=== PATIENT | female | born 1945 | race Caucasian/White ===

== ENCOUNTER → 2017-07-23 | Outpatient (CLI) | payer OTHER ==
[~2017-07-23] MED LIST: COZAAR 50 MG TA50 M2 PO; D3 DOTS2000 UNIT PO; ETODOLAC 400 M400 M1 PO; FISH OIL 1,001000 M2 PO; FLEXERIL PO; GLUCOSAMINE HC500 MG PO; HYDROCODON-ACE1 EAC7 PO; LEXAPRO 10 MG T10 M2 PO; LIDOPATCH1 EACH TOP; PERCOCET PO; TRAMADOL 50 MG50 MG PO; TURMERIC500 M2 PO; UNICOMPLEX M TA1 TA1 PO; XARELTO10 MG PO
== END ==
LOC: EDUNIT# → M.MRI 13:56
DX: S83.231A Complex tear of medial meniscus, current injury, right knee, initial encounter (principal); M17.11 Unilateral primary osteoarthritis, right knee; M25.461 Effusion, right knee; M71.21 Synovial cyst of popliteal space [Baker], right knee; X58.XXXA Exposure to other specified factors, initial encounter; Y93.89 Activity, other specified; Y92.89 Other specified places as the place of occurrence of the external cause; Y99.8 Other external cause status; Z96.651 Presence of right artificial knee joint

== ENCOUNTER 2017-08-20 07:01 | Inpatient (IN) | payer OTHER ==
[2017-08-08 09:51] LABS: URINE BLOOD NEGATIVE (Negative); URINE CLARITY CLEAR; URINE COLOR YELLOW; URINE GLUCOSE-RANDOM NEGATIVE (Negative); URINE KETONES NEGATIVE (Negative); URINE LEUKOCYTES-REFLEX NEGATIVE (Negative); URINE NITRITE-REFLEX NEGATIVE (Negative); URINE PROTEIN NEGATIVE (Negative); URINE SPECIFIC GRAVITY 1.025 (1.005-1.030); URINE UROBILINOGEN 0.2 E.U./dl (0.2-1.0)
[2017-08-08 09:54] LABS: ICTOTEST (BILI CONFIRMATORY) Positive (Negative); URINE BILIRUBIN 3+ (Negative)
[2017-08-08 10:01] LABS: HEMATOCRIT 43.9 % (37.0-47.0); HEMOGLOBIN 14.6 gm/dL (12.0-15.0); MCH 28.8 pg (26.0-34.0); MCHC 33.2 g/dL (28.0-37.0); MCV 86.6 fL (80.0-100.0); MPV 7.1 fl. (7.2-11.1); RBC 5.07 mil/uL (4.20-5.00); RDW-CV 14.2 % (10.5-14.5); WBC 5.5 thou/uL (4.0-11.0)
[2017-08-08 10:13] LABS: PROTIME 9.4 Seconds (9.20-11.50)
[2017-08-08 10:19] LABS: ALBUMIN 3.7 g/dL (3.4-5.0); CALCIUM 9.5 mg/dL (8.5-10.1); CREATININE 0.7 mg/dL (0.6-1.3); POTASSIUM 4.1 mmol/L (3.5-5.1); TOTAL BILIRUBIN 0.6 mg/dL (<0.1-1.0); TOTAL PROTEIN 7.3 g/dL (6.4-8.2)
--- NOTE | 2017-08-08 17:51 | EKG ---
[place] [address] ELECTROCARDIOGRAM REPORT Name: MARKUS MCCANN Room: PRE IN [facility]#: [id number] Admission: Attend Phys: Obdulia Uribe Discharge: Date of : 49 Report #: [id number] THIS REPORT FOR: //name// [facility] Test Date: 2017-08-08 Test Time: 09:24:02 Pat Name: MARKUS MCCANN Department: Room: Gender: F Vessel Crew Member: : 1945 Requested By: Kaiser Alvarez Order Number: [id number] Reading MD: Brien Stone Measurements Intervals [place] Rate: 78 P: 59 LA: 169 QRS: 2 QRSD: 87 T: 46 QT: 376 QTc: 429 Interpretive Statements Sinus rhythm No previous ECG available for comparison Electronically Signed On 08-08-2017 17:50:46 CDT by Brien Stone [email or web address] <ELECTRONICALLY SIGNED> By: Brien Stone MD, [facility] 08/08/17 1750 0924 0924 Brien Stone MD, FACC /EPI
[~2017-08-20] VITALS: Ht 172.7 cm; Wt 108.4 kg
[~2017-08-20 07:01] MED LIST changes: -FLEXERIL PO; -HYDROCODON-ACE1 EAC7 PO; -LIDOPATCH1 EACH TOP; -PERCOCET PO; -TRAMADOL 50 MG50 MG PO; -XARELTO10 MG PO
--- NOTE | 2017-08-20 09:15 | NUR ---
RECIEVED O.T. ORDERS. WILL DEFER TO P.T. AND NURSING AT THIS TIME. PLEASE ORDER FURTHER O.T. SERVICES IF NEEDED.
[2017-08-20 09:24] VITALS: BP 153/77
[2017-08-20 12:23] VITALS: BP 121/64
--- NOTE | 2017-08-20 12:28 | NUR ---
PATIENT TRANSFERRED FROM PACU TO ROOM 105. ALERT AND ORIENTED. DENIES PAIN. DENIES NAUSEA. IVF INFUSING ORDERED. DRESSING TO RIGHT KNEE DRY AND INTACT. LEFT DAVID AND SCD'S IN PLACE. POLAR CARE IN PLACE. TOLERATNG DIET. BED ALARM SET. FAMILY AT BEDSIDE. WILL CONTINUE TO MONITOR.
[2017-08-20 16:00] VITALS: BP 156/71
--- NOTE | 2017-08-20 16:22 | NUR ---
PATIENT CARE AND REPORT ASSUMED FROM MATT HAINES. PATIENT CURRENTLY RESTING. [address], CAPNO IN PLACE. IV ABX INFUSING THIS EVENING WITH IVF. POLAR PACK IN PLACE TO RIGHT KNEE. WILL CONTINUE TO MONITOR.
[2017-08-20 20:30] VITALS: BP 126/60
[2017-08-20 23:51] VITALS: BP 147/66
[2017-08-21 04:00] VITALS: BP 135/57
--- NOTE | 2017-08-21 04:47 | NUR ---
PATIENT REMAINS ALERT AND ORIENTED X4 THROUGHOUT SHIFT. VITAL SIGNS STABLE ON 4 LITERS OF OXYGEN. CAPNO IN PLACE. PAIN MANAGED WITH PO PAIN MEDICATION PER ORDERS. DENIES NAUSEA AND OR VOMITING. HEMOVAC IN PLACE AND PATENT. IV PATENT IN THE LEFT WRIST INFUSING AT 75 ML/HR. HOURLY ROUNDING COMPLETE. THIGH HIGH DAVID HOSE TO LEFT LEG. BILATERAL FOOT SCD'S IN PLACE. TRANSFERRING WITH ASSIST OF 1-2 TO BEDSIDE COMMODE WITH WALKER AND GAITBELT. PATIENT DOES HAVE EPISODES OF URGE AND STRESS INCONTINENCE. ENCOURAGED TO LEAVE BRIEF OFF THROUGHOUT NIGHT, PATIENT DECLINED. POLAR PACK IN PLACE. CPM USED ORDERED. PATIENT REPOSITIONING HERSELF IN BED. FALL PRECAUTIONS IN PLACE. BED IN LOW POSITION. BED ALARM IN PLACE. CALL LIGHT WITHIN REACH. NURSING WILL CONTINUE TO MONITOR.
[2017-08-21 05:22] LABS: HEMATOCRIT 33.7 % (37.0-47.0); HEMOGLOBIN 11.3 gm/dL (12.0-15.0); MCHC 33.4 g/dL (28.0-37.0); MCV 86.6 fL (80.0-100.0); MPV 7.2 fl. (7.2-11.1); RBC 3.89 mil/uL (4.20-5.00); RDW-CV 13.4 % (10.5-14.5); WBC 7.4 thou/uL (4.0-11.0)
[2017-08-21 05:51] LABS: CALCIUM 8.2 mg/dL (8.5-10.1); CREATININE 0.7 mg/dL (0.6-1.3); POTASSIUM 4.4 mmol/L (3.5-5.1); TOTAL BILIRUBIN 0.3 mg/dL (<0.1-1.0); TOTAL PROTEIN 5.8 g/dL (6.4-8.2)
[2017-08-21 08:45] VITALS: BP 150/64
[2017-08-21] MEDS ORDERED: LIDOPATCH1 EACH TOP (09:35)
[2017-08-21] MEDS ORDERED: HYDROCODON-ACE1 EAC7 PO (09:35)
[2017-08-21] MEDS ORDERED: XARELTO10 MG PO (09:35)
--- NOTE | 2017-08-21 10:19 | NUR ---
INITIAL ASSESSMENT: Pt evaluated for d/c planning needs. Reviewed chart and spoke with nurse and pt. Pt is alert and oriented. Pt has walker and shower bench at home. Pt had home health years ago, and cannot recall name of company. Pt was given choices for home health. If pt goes home with home health, she is agreeable to use [facility]. Pt states she reluctant to return home and would prefer going to SNF on d/c. [facility] Referral sent to [facility]. Will remain available to assist as needed.
--- NOTE | 2017-08-21 10:50 | OP ---
[facility] [address] [place] [address] OPERATIVE REPORT Name: MARKUS MCCANN Room: [address] M.R.#: [id number] Admission: 08/20/17 Attend Phys: Obdulia Uribe Discharge: Date of : 49 Report #: [id number] THIS REPORT FOR: //name// CC: Leila Smalls DATE OF SERVICE: 08/20/2017 PREOPERATIVE DIAGNOSIS: Right knee osteoarthritis. POSTOPERATIVE DIAGNOSIS: Right knee osteoarthritis. PROCEDURE: Right total knee arthroplasty. SURGEON: Kaiser Alvarez DO FOOTWEAR PRODUCTION MACHINE OPERATOR: BETHANIE Iraheta. ANESTHESIA: General endotracheal. ESTIMATED BLOOD LOSS: 50 mL ANTIBIOTICS: Ancef preoperatively. DRAINS: Medium Hemovac. COMPLICATIONS: None. DISPOSITION: Stable to recovery room. IMPLANTS: Listed in the operative record and progress note. BRIEF HISTORY: The patient was seen in the preoperative area. Preoperative H and P was performed. The patient's site was marked, questions were answered. Risks and benefits were discussed with the patient in detail about surgery. The patient wished to proceed and assumed all risk. DESCRIPTION OF PROCEDURE: The patient was taken to the operative suite and placed supine on the operative table, given appropriate anesthesia. The patient had a well-padded tourniquet applied in the upper thigh, was inflated to 300 mmHg after gravity exsanguination. The operative knee was sterilely prepped and draped. Surgery began by midline incision, this was carried down to the subcutaneous tissues. A medial parapatellar arthrotomy was performed, carried down to bone. The patella was then everted and excess soft tissue removed around the femur. The femoral cutting block was then applied and checked with a [facility] [address] [place] [address] OPERATIVE REPORT Name: MARKUS MCCANN Room: [address] [facility].#: [id number] Admission: 08/20/17 Attend Phys: Obdulia Uribe Discharge: Date of : 49 Report #: [id number] drop kirk for rotational alignment, pinned in appropriate position and appropriate cuts were made. A 4-in-1 cutting block was then applied. Checked for rotational alignment, pinned in appropriate position and appropriate cuts were made. The tibia was then exposed, excess meniscus was removed. Retractor was placed along the collateral ligaments. The tibial cutting block was then applied, pinned in appropriate position and appropriate cut was made. Tibial bone was removed. Tibial base plate was then applied, checked for rotational alignment with the drop kirk, pinned in appropriate position. Femur was then applied and a box cut was reamed. This was then trialed with the appropriate spacer, which had excellent fit and fill and excellent stability of the knee throughout all range of motion. The patella was then reamed in appropriate fashion and sized to appropriate size. Three peg holes were drilled. The knee was then trialed, shown to have excellent flexion, extension, excellent tracking of patella from the groove. These trials were removed. The tibia was then punched in appropriate fashion. Bone ends were cleansed with Pulsavac irrigation and cement was mixed and applied to the final implants. These were then malleted in position and held with the knee in extension and compressed to allow the cement to cure. After cured, excess was removed using [place] and osteotome. Wound was then copiously irrigated and the final spacer was then malleted in position. Tourniquet was deflated. Hemostasis was maintained with electrocautery. Pain cocktail was injected, PRP gel sprayed throughout the internal aspects of the knee. Medium Hemovac drain was then applied. The capsule was closed with #2 FiberWire and #1 Vicryl in dxlipy-yg-wjdgw fashion. Skin was closed with 2-0 Vicryl and running 3-0 Monocryl. Dermabond dressing was applied. Mahamed wrap and PolarCare were applied. The patient transported to recovery in stable condition. Counts were correct throughout the procedure. <ELECTRONICALLY SIGNED> By: Kaiser Alvarez II, DO 08/21/17 1050 0658 [id number] Alvarez II, DO /nt
[2017-08-21] MEDS ORDERED: FLEXERIL PO (13:41)
[2017-08-21 13:46] VITALS: BP 150/64
[2017-08-21 15:44] VITALS: BP 126/64
--- NOTE | 2017-08-21 17:10 | NUR ---
PATIENT WORKED WITH PT X 2 TODAY. PRN PERCOCET AND SCHED TRAMADOL GIVEN FOR PAIN, PAIN MANAGEABLE WITH ORAL AGENTS. IV SL THIS SHIFT. HEMOVAC DC'D TO RIGHT KNEE THIS AM PER ORDERS. DRESSING TO RIGHT KNEE REMAINS D/I. PATIENT REFUSED CPM THIS AFTERNOON, INFORMED PATIENT THAT CPM WOULD NEED TO BE PLACED ON AFTER DINNER, PATIENT AGREEABLE. PATIENT REQUESTING TO GO TO SNF WHEN DISCHARGED, PROBABLE DISCHARGE TOMORROW.
[2017-08-21 20:00] VITALS: BP 123/59
--- NOTE | 2017-08-21 23:23 | NUR ---
PATIENT TRANSFERRED TO [facility] DURING [facility]DO WARNING PER HOSPITAL POLICY.
[2017-08-22 00:13] VITALS: BP 144/69
[2017-08-22 04:24] VITALS: BP 146/73
--- NOTE | 2017-08-22 04:50 | NUR ---
PATIENT REMAINS ALERT AND ORIENTED X4 THROUGHOUT SHIFT. VITAL SIGNS STABLE. OXYGEN WAS APPLIED AT 3 LITERS TO MAINTAIN OXYGEN SATURATION. IV PATENT AND SALINE LOCKED IN THE LEFT WRIST. TRANSFERRING WITH ASSIST OF 1 WITH WALKER AND GAITBELT TO THE BEDSIDE COMMODE. MEDICATIONS GIVEN PER ORDERS. POLAR PACK IN PLACE. DECLINES USING CPM WHEN OFFERED. CAN BE INCONTINENT AT TIMES AND HAS URGENCY. PAIN MANAGED WITH PO MEDICATION. DENIES NAUSEA. REPOSITIONING SELF IN BED. HOURLY ROUNDING COMPLETE. CALL LIGHT WITHIN REACH. NURSING WILL CONTINUE TO MONITOR.
[2017-08-22 04:53] LABS: HEMATOCRIT 33.5 % (37.0-47.0); HEMOGLOBIN 11.2 gm/dL (12.0-15.0)
[2017-08-22 07:45] VITALS: BP 137/65
--- NOTE | 2017-08-22 09:21 | NUR ---
FAXED PT ASSESSMENT AND OT ASSESSMENTS FROM 08/21 AFTERNOON TO [facility] TO FAX INTO INSURANCE FOR AUTHORIZATION FOR SNF.
--- NOTE | 2017-08-22 15:23 | NUR ---
RECEIVED CALL FROM [facility]. THEY HAVE INSURANCE AUTHORIZATION FROM PT.'S PROVIDER. CM SPOKE WITH PT.ON THE PHONE AND SHE IS AGREEABLE TO GO THERE. SHE WOULD LIKE TO GO HOME FROM THERE ON SATURDAY. I TOLD HER TO TALK WITH HER PHYSICAL THERAPIST AND NURSE AT THE [facility] AND THEY CAN LET HER KNOW IF THIS IS REALISTIC. TOLD HER CLINICAL LAB TECHNOLOGIST TIME AND THAT NSG.WOULD GET HER READY TO GO. NOTIFIED [employer] [facility]. SHE WILL COPY CHART AND FAX ORDERS TO RHIANNON/MARIE [phone]. NURSING TO CALL REPORT TO [phone]. WC ARRANGED BY MARIE FOR [phone].
[2017-08-22] MEDS ORDERED: PERCOCET PO (15:37)
[2017-08-22] MEDS ORDERED: TRAMADOL 50 MG50 MG PO ×2 (15:37→16:53)
[2017-08-22 15:57] VITALS: BP 137/65
[2017-08-22 16:44] VITALS: BP 150/64
--- NOTE | 2017-08-22 17:38 | NUR ---
PATIENT LEFT UNIT AT 1730. ALERT AND ORIENTED X4. UP WITH ASSIST X1 WITH WALKER AND GAIT BELT. IV DC'D. PAIN BEING MANAGED WITH PO PAIN MEDICATION. DENIES NAUSEA. ATTENDED PT TWICE THIS SHIFT. INCONTINENT AT TIMES. ALL PERSONAL ITEMS LEFT WITH PATIENT. DISCHARGE INSTRUCTIONS, PRESCRIPTIONS, AND NEW MEDICATION INFORMATION SENT WITH PATIENT TO SKILLED FACILITY. VSS ON ROOM AIR. HOURLY ROUNDS HAVE BEEN MAINTAINED THROUGHOUT SHIFT. LEFT WITH TRANSPORTER VIA CAR. REPORT GIVEN TO ELPIDIO AT [facility].
[2017-08-22 17:41] VITALS: BP 150/64
== END 2017-08-22 17:30 | DRG 470 ==
LOC: M.PRE → M.ORTHSURG 07:01 → M.PRE 07:01 → M.TBA 07:01 → M.PRE 09:05 → M.ORTHSURG 11:44 → M.PRE 13:56 → M.ORTHSURG 08-22 17:30
PROVIDERS: Internal Medicine; Orthopaedic Surgery; ADMIT Internal Medicine
PROC: 0SRC0J9 Replacement of Right Knee Joint with Synthetic Substitute, Cemented, Open Approach (ICD-10-PCS; principal; 2017-08-20)
DX: M17.11 Unilateral primary osteoarthritis, right knee (principal); M79.7 Fibromyalgia; I10 Essential (primary) hypertension; F32.9 Major depressive disorder, single episode, unspecified; Z79.899 Other long term (current) drug therapy; Z90.710 Acquired absence of both cervix and uterus

== ENCOUNTER → 2019-08-07 | Day surgery (SDC) | payer MEDICARE ==
[~2019-08-07] MED LIST changes: +FLEXERIL PO; +HYDROCODON-ACE1 EAC7 PO; +KEFLEX500 M2 PO; +LIDOPATCH1 EACH TOP; +NORVASC 2.5 MG2.5 M1 PO; +PERCOCET PO; +TRAMADOL 50 MG50 MG PO; +XARELTO10 MG PO
--- NOTE | ~2019-08-07 | OP ---
[facility] [address] [place] [address] OPERATIVE REPORT Name: MARKUS MCCANN Room: [facility]#: [id number] Admission: 08/07/19 Attend Phys: Adam Lagunas Discharge: Date of : 49 Report #: [id number] THIS REPORT FOR: //name// cc: JEANETTE WILLIS MD, HEATHER L. MD ~ THIS REPORT FOR: //name// CC: JEANETTE Lagunas DATE OF SERVICE: 08/07/2019 PREOPERATIVE DIAGNOSIS: Left heel foreign body. POSTOPERATIVE DIAGNOSIS: Left foot abscess. OPERATION: Incision and drainage of left foot abscess. SURGEON: Adam Lagunas MD ANESTHESIA: General. ESTIMATED BLOOD LOSS: Minimal. SPECIMEN: None. DESCRIPTION OF PROCEDURE: After informed consent was obtained, the patient was brought to the operating room and placed supine. SCDs were placed and working, preoperative antibiotics were administered, general anesthesia was induced. The left heel was prepped and draped in usual sterile fashion. I began by incising the opening by approximately 1 cm with cautery. This area was then probed. There was some pus that was removed. I probed the area and I was not able to feel any sort of foreign body. Therefore, I brought the ultrasound into the field. I ultrasounded the area and was not able to locate the foreign body either. The foreign body was readily visible on the ultrasound yesterday. The patient did note that she did pull some foreign body on her own. The area was then irrigated. A 1-cm opening was then packed with sterile gauze. Sterile dressings were applied. COMPLICATIONS: [place] [address] OPERATIVE REPORT Name: MARKUS MCCANN Room: [facility]#: [id number] Admission: 08/07/19 Attend Phys: Adam Lagunas Discharge: Date of : 49 Report #: [id number] DISPOSITION: The patient was taken to recovery in satisfactory condition. By: 1153 1200Adam Lagunas MD /nt
[2019-08-07 07:45] LABS: HEMATOCRIT 40.7 % (37.0-47.0); HEMOGLOBIN 13.8 gm/dL (12.0-15.0); MCH 28.3 pg (26.0-34.0); MCV 83.1 fL (80.0-100.0); MPV 7.6 fl. (7.2-11.1); RBC 4.9 mil/uL (4.20-5.00); RDW-CV 14.2 % (10.5-14.5)
[2019-08-07 07:50] LABS: CALCIUM 8.8 mg/dL (8.5-10.1); CREATININE 0.9 mg/dL (0.6-1.3); POTASSIUM 3.9 mmol/L (3.5-5.1)
--- NOTE | 2019-08-07 09:16 | EKG ---
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 08/07/19 0915 0755 0755 Juan Bella MD, [facility] /EPI
== END | disposition home or self-care (01) ==
LOC: M.SUR 07:05
PROVIDERS: Surgery
DX: L02.612 Cutaneous abscess of left foot (principal); S91.342A Puncture wound with foreign body, left foot, initial encounter; I10 Essential (primary) hypertension; M19.90 Unspecified osteoarthritis, unspecified site; M79.7 Fibromyalgia; Z90.710 Acquired absence of both cervix and uterus; Z98.890 Other specified postprocedural states; Z79.899 Other long term (current) drug therapy; X58.XXXA Exposure to other specified factors, initial encounter; Y93.01 Activity, walking, marching and hiking; Y92.89 Other specified places as the place of occurrence of the external cause; Y99.8 Other external cause status